=== PATIENT | female | born 1985 | race Caucasian/White ===

== ENCOUNTER 2017-12-28 10:05 | Day surgery (SDC) | payer OTHER ==
[2017-12-28 10:42] VITALS: BP 127/70; TEMP 99.2; BMI 32.3
[2017-12-28] MEDS ORDERED: Acetaminophen 500 MG TAB PO SCH (11:30)
--- NOTE | 2017-12-28 11:32 | PDOC.LDHP ---
Labor and Delivery H&P Chief complaint: other (abdominal pain) HPI: This is a 32 yo F at about 24 wks by lmp patient complaining of gradually worsening epigastric pain described as "achy" and ranked at 8/10. The pain started 2 days ago. She has been able to keep gatorade down but no solid food. She has had nausea and diarrhea. Denies blood in the stool. The pain is made worse by eating or moving, improved by excedrin. She denies any sick contacts. Denies fevers, chills, or sweats. She also complains of headache, she has a history of migraines and states she thinks one of her usual migraines is coming on. Current gestational age (weeks): 23 Dating criteria: last menstrual period Current complications: none, other (No visits as of yet, has appointment for tomorrow at care clinic) Past Medical History: migraines Current medications: pre-federica vitamins Previous surgical history: low tranverse CS (x3) Social history: tobacco use (current smoker 1-2 cigarettes a day, counseled patient on smoking cessation) - Physical Exam Vital signs reviewed and normal: yes General: NAD Heart: RRR Lungs: CTAB Abdomen: gravid (no rebound tenderness, leslie's negative) Extremeties: no edema FHT: category 1 (no accels, baseline HR 150, no decels, good variability, no contractions) - Assessment This is a 32 yo F at about 24 wks by lmp patient complaining of abdominal pain with likely viral gastroenteritis which appears to be improving. Patient is hungry and tolerating PO intake. - Plan -: Discharge home - counseled on smoking cessation - continue PO intake - offered zofran, patient refused - Use tylenol for pain relief - flu swab negative - Counseled patient on reasons to return including but not limited to ROM, contractions <5 minutes, vaginal bleeding, or fever. - f/u with care clinic tomorrow Allergies/Adverse Reactions: Allergies Allergy/AdvReac Type Severity Reaction Status Date / Time No Known Allergies Allergy Verified 12/28/17 10:42
[2017-12-28] MEDS ORDERED: Ondansetron ODT 4 MG TAB PO PRN (11:40)
== END 2017-12-28 13:45 | disposition home or self-care (01) ==
LOC: L&D/OP 10:05
PROVIDERS: ATTEND Obstetrics & Gynecology
DX: O99.89 Other specified diseases and conditions complicating pregnancy, childbirth and the puerperium (principal); R10.13 Epigastric pain; R11.2 Nausea with vomiting, unspecified; O99.332 Smoking (tobacco) complicating pregnancy, second trimester; F17.210 Nicotine dependence, cigarettes, uncomplicated; Z3A.23 23 weeks gestation of pregnancy
CPT/HCPCS: 87804; 99282

== ENCOUNTER 2018-04-04 23:12 | Day surgery (SDC) | payer OTHER ==
[2018-04-04 23:45] VITALS: BMI 34.7
[2018-04-05] MEDS ORDERED: diphenhydrAMINE 50 MG CAP PO SCH (01:15)
[2018-04-05] MEDS ORDERED: Acetaminophen 500 MG TAB PO SCH (01:15)
[2018-04-05] MEDS ORDERED: Lactated Ringer's 1,000 ML IV SCH (01:30)
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
--- NOTE | 2018-04-05 02:53 | PDOC.LDPN ---
Labor & Delivery Progress Note - Subjective Subjective: comfortable - Objective Vital signs reviewed and normal: yes General: NAD, resting Uterine fundus: non tender AYSHAE: Kranthi Dilation: 0 Effacement: 0% Station: -3 FHT: category 1 - Assessment (1) Round ligament pain Code(s): N94.9 - UNSP COND ASSOC W FEMALE GENITAL ORGANS AND MENSTRUAL CYCLE Status: Acute (2) Intrauterine Code(s): Z34.90 - ENCNTR FOR SUPRVSN OF NORMAL , UNSP, UNSP TRIMESTER Status: Acute Plan: other (DC home) -: 32 year old F at 37 wks by LMP (1) Round ligament pain - No cervical change after monitoring for two hours - occasional contractions initially, resolved after IVFs - recommended tylenol for pain - keep del f/u appt with PNC tomorrow - Discharge home (2)sIUP - Cat I strip - No concerns - see above - f/u with PNC <Billy Crisostomo - Last Filed: 04/05/18 02:51> Attending Addendum - Attending Addendum Date/Time: 04/05/18 0300 I personally evaluated the patient and discussed the management with Dr. Crisostomo I agree with the History, Examination, Assessment and Plan documented above with any addition or exceptions noted below. Unchanged exam. Doing well. Ok to d/c to home. Kell <Jeannette Palomo - Last Filed: 04/05/18 21:00>
== END 2018-04-05 06:10 | disposition home or self-care (01) ==
LOC: L&D/OP 23:12
PROVIDERS: ATTEND Student in an Organized Health Care Education/Training Program
DX: O99.89 Other specified diseases and conditions complicating pregnancy, childbirth and the puerperium (principal); O23.03 Infections of kidney in pregnancy, third trimester; O99.333 Smoking (tobacco) complicating pregnancy, third trimester; R10.2 Pelvic and perineal pain; Z3A.38 38 weeks gestation of pregnancy
CPT/HCPCS: 96360; 96361; 99284

== ENCOUNTER 2018-04-11 13:01 | Day surgery (SDC) | payer OTHER ==
[2018-04-11 13:50] VITALS: BMI 34.7
[2018-04-11 14:40] LABS: Amnisure Test No Membranes Rupture (No Rupture)
[2018-04-11 14:41] LABS: Amnisure Internal Control QC ACCEPTABLE (ACCEPTABLE)
--- NOTE | 2018-04-11 14:50 | PDOC.LDHP ---
Labor and Delivery H&P Chief complaint: contractions HPI: 32 year old at 38.2 wks by LMP/3T ultrasounds presents with contractions. She states she woke up early this morning with contractions every 5 minutes. They have since spaced out. She also had 2 episodes of NBNB emesis and several episodes of diarrhea. She has been under a lot of stress lately, and most of her symptoms started after having a conversation regarding upcoming court appointment for her son on Monday. She has not attempted to eat or drink much today. She denies LoF or vaginal bleeding. She states that she has had some vaginal discharge which appears to be clear and has consistency of mucous. She has had a headache intermittently today and has a history of migraines. She denies RUQ pain, shortness of breath, fevers, or chest pain. ROS: General: Denies fever, chills. 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 Current gestational age (weeks): 38 (38.2) Due date: 04/23/18 Dating criteria: last menstrual period, second trimester ultrasound, other (3rd trimester) Grav: 6 Para: 3 OB History Details: 1. sIUP 2. Hx of LTCS x3; possible lower uterine segment but no uterine window. Sent to [facility], has appt on 04/13 3. Anterior placenta 4. BMI 32; wt gain of 29 Ibs 5. Fam hx of ovarian cancer, breast cancer, colon cancer; approved for salpingectomy at [facility] 6. SAB x2 7. Incomplete/poor care 8. Tobacco abuse 9. Incarcerated during 10. Psoriasis 11. GBS bacteriuria s/p tx Current complications: other (Seeing [facility] for thin lower uterine segment) Past Medical History: 1. Migraine NUGENT's 2. Psoriasis on topical steroids Current medications: none Previous surgical history: low tranverse CS (x3) Social history: tobacco use (history of tobacco use) - Physical Exam Vital signs reviewed and normal: yes General: NAD Heart: RRR Lungs: CTAB Abdomen: gravid Extremeties: no edema FHT: category 1, variability present Rhine contractions every: Irregular - Vaginal Exam cm dilated: 0 Effacement: 0% Station: -3 - OB Labs Blood type: A RH: positive Antibody Screen: negative HIV: negative RPR: negative HEPSAg: negative GBS: positive Urine drug screen: negative (Prior UDS negative) Rubella: immune - Assessment 1. Labor rule out - Plan Plan: observation in L&D -: 1. Labor rule out - Amnisure negative; no rupture of membranes - Cervical check 0/0/high posterior - Contractions; none on monitor - FHT's 140's and strip reassuring - VSS - Discussed poor dating due to presenting late to care; Discussed in detail with Dr. Noe that patient not good candidate for elective c/s at this time. She has not medical necessity to schedule section with suboptimal dating. Patient does see MFM, and if they recommend patient have c/s scheduled during this , then can consider scheduling at that time. Patient has appt on 04/13/2018. There is concern for thin lower uterine segment and it has been recommended that OB surgeon scrub into delivery. - Patient was given return precautions to include LoF, frequent and regular contractions, decreased movement 2. sIUP - Checked HgA1c as patient has not had diabetes screening during this - All other labs have been normal 3. BMI 32 - 29 Ib weight gain this - Checked HgA1c 4. Family history of breast, ovarian, and colon cancer - Approved for bilateral risk reducing salpingectomy at [facility] 5. SAB x2 6. GBS bacteriuria s/p treatment <Kat Dyer - Last Filed: 04/11/18 14:43> <Sal Noe - Last Filed: 04/11/18 16:10> Allergies/Adverse Reactions: Allergies Allergy/AdvReac Type Severity Reaction Status Date / Time No Known Allergies Allergy Verified 12/28/17 10:42 Attending Addendum - Attending Addendum Date/Time: 04/11/18 1610 I personally evaluated the patient and discussed the management with Dr. Huggins. I agree with the History, Examination, Assessment and Plan. <Sal Noe - Last Filed: 04/11/18 16:10>
[2018-04-11 15:44] LABS: Hemoglobin A1c 5.3 % (4.0-6.0)
== END 2018-04-11 15:45 | disposition home or self-care (01) ==
LOC: L&D/OP 13:01
PROVIDERS: ATTEND Obstetrics & Gynecology
DX: O47.1 False labor at or after 37 completed weeks of gestation (principal); Z87.891 Personal history of nicotine dependence; Z3A.38 38 weeks gestation of pregnancy
CPT/HCPCS: 36415; 83036; 84112; 99283

== ENCOUNTER 2018-04-17 10:04 | Inpatient (IN) | payer OTHER ==
[~2018-04-17 10:04] MED LIST: Ondansetron HCl/PF 4 MG/2 ML Vial IVP PRN; Promethazine HCl 25 MG/ML VIAL IM PRN
[2018-04-17] MEDS ORDERED: Bicitra 30 ML UDCUP PO SCH (10:30)
[2018-04-17] MEDS ORDERED: CEFAZOLIN/Water 2 GM/20 ML SYRINGE SLOW IVP SCH (10:30)
[2018-04-17] MEDS: Lactated Ringer's 1,000 ML IV SCH ×2 (10:40→11:30)
[2018-04-17 11:04] VITALS: BMI 36.9
--- NOTE | 2018-04-17 11:31 | PDOC.LDHP ---
Labor and Delivery H&P Chief complaint: scheduled section HPI: 32 year old at 39.1 wks by LMP/31.0 wk ultrasound presents for scheduled repeat ceserean section. She denies LoF or vaginal bleeding or discharge. She denies, RUQ pain, shortness of breath, fevers, or chest pain. Endorses good movement. Patient endorses mild headache. She is emotional currently as no family is able to attend the of her child. ROS: General: Denies fever, chills. 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 Current gestational age (weeks): 39 (39.1 wks) Due date: 04/23/18 Dating criteria: other (31.0 wks) Grav: 6 Para: 3 OB History Details: 1. TIUP 2. Hx of LTCS x3; possible lower uterine segment but no uterine window. Sent to [facility], has appt on 04/13 3. Anterior placenta 4. BMI 32; wt gain of 29 Ibs 5. Fam hx of ovarian cancer, breast cancer, colon cancer; approved for salpingectomy at [facility] 6. SAB x2 7. Incomplete/poor care 8. Tobacco abuse 9. Incarcerated during 10. Psoriasis 11. GBS bacteriuria s/p tx Current complications: none Abnormal US findings: Yes (Thin lower uterine segment; possible uterine window) Past Medical History: 1. Migraine NUGENT's 2. Psoriasis on topical steroids Current medications: none (Not taking PNV) Previous surgical history: low tranverse CS (x3) Allergies/Adverse Reactions: Allergies Allergy/AdvReac Type Severity Reaction Status Date / Time No Known Allergies Allergy Verified 04/17/18 10:58 Social history: tobacco use - Physical Exam Vital signs reviewed and normal: yes General: NAD, resting Heart: RRR Lungs: CTAB Abdomen: NTTP Extremeties: no edema FHT: category 1, variability present - OB Labs Blood type: A RH: positive Antibody Screen: negative HIV: negative RPR: negative HEPSAg: negative GBS: positive Urine drug screen: negative (recent drug screen negative) Rubella: immune - Assessment L&D Assessment: scheduled repeat section - Plan Plan: admit to L&D -: Scheduled repeat C/S - repeat number 4 (3 prior c/s) - thin lower uterine segment - possible uterine window - was supposed to see MFM 04/13/18 - Dr. Bateman and Dr. Noe to perform c/s BMI 32 - 29 Ib weight gain this - Checked HgA1c on 04/11; 5.3% Family history of breast, ovarian, and colon cancer - Approved for bilateral risk reducing salpingectomy at [facility] SAB x2 GBS bacteriuria s/p treatment
[2018-04-17] MEDS ORDERED: Morphine PF 1 MG/ML SYR ONE (11:46)
[2018-04-17] MEDS ORDERED: Oxytocin 10 UNITS/ML VIAL ONE ×2 (11:47→13:53)
[2018-04-17] MEDS ORDERED: Bupivacaine 0.75% W/DEXTROSE 8.25% 2 ML AMP ONE (11:47)
[2018-04-17] MEDS ORDERED: Ketorolac Tromethamine 30 MG/ML VIAL ONE (11:47)
[2018-04-17] MEDS ORDERED: Ondansetron HCl/PF 4 MG/2 ML Vial IVP PRN ×2 (12:00→12:01)
[2018-04-17] MEDS ORDERED: Meperidine HCl/PF 25 MG/ML VIAL SLOW IVP PRN (12:00)
[2018-04-17] MEDS ORDERED: HYDROmorphone 2 MG/ML VIAL SLOW IVP PRN (12:00)
[2018-04-17] MEDS ORDERED: Ketorolac Tromethamine 30 MG/ML VIAL IVP SCH (12:00)
[2018-04-17] MEDS ORDERED: Naloxone HCl 0.4 mg/ml Vial IV PRN (12:01)
[2018-04-17] MEDS ORDERED: Ketorolac Tromethamine 30 MG/ML VIAL IVP PRN (12:01)
[2018-04-17] MEDS ORDERED: Promethazine HCl 25 MG/ML VIAL IM PRN (12:01)
[2018-04-17] MEDS ORDERED: Naloxone HCl 0.4 mg/ml Vial IVP PRN ×2 (12:01)
[2018-04-17] MEDS ORDERED: Eucerin (Mineral Oil/Petrolatum,White) 30 gm Jar TOP PRN (12:01)
[2018-04-17] MEDS ORDERED: Promethazine HCl 25 MG SUPP PR PRN (12:01)
[2018-04-17] MEDS ORDERED: diphenhydrAMINE 50 MG/ML VIAL IVP PRN (12:01)
[2018-04-17] MEDS ORDERED: Communication Order-Pharmacy FS SCH (12:15)
[2018-04-17 12:49] LABS: Hemoglobin 11.7 g/dL (12.0-16.0); Mean Corpuscular HGB CONC 33.6 g/dL (32.0-36.0); Mean Corpuscular Hemoglobin 29.2 pg (27.0-31.0); Mean Corpuscular Volume 86.8 fl (81.0-99.0); Mean Platelet Volume 8.1 fL (7.4-10.4); Platelet Count 204 thou/uL (130-400); RBC Distribution Width 13.3 % (11.5-14.5); White Blood Cell (WBC) Count 12.8 thou/uL (4.8-10.8)
[2018-04-17] MEDS ORDERED: Lidocaine 1% (PF) 30 ML VIAL ONE (12:56)
[2018-04-17] MEDS ORDERED: PHENYLEPHRINE-NS 100 MCG/ML 10 ML SYRINGE ONE (13:06)
[2018-04-17] MEDS ORDERED: Midazolam HCl 2 mg/2 ml Vial ONE (13:14)
[2018-04-17 13:36] LABS: Syphilis Antibody Nonreactive (Nonreactive); Syphilis Antibody Index 0.02 S/CO (<1.00 Non-Reactive)
[2018-04-17 13:38] LABS: HBSAg Index 0.16 S/CO (0-0.99); Hep B Surf Ag Non-Reactive S/CO (NonReactive)
[2018-04-17] MEDS ORDERED: diphenhydrAMINE 50 MG/ML VIAL ONE (15:32)
[2018-04-17] MEDS ORDERED: Naloxone HCl 0.4 mg/ml Vial ONE (15:32)
[2018-04-17] MEDS ORDERED: Meperidine HCl/PF 25 MG/ML VIAL ONE (15:40)
[2018-04-17] MEDS ORDERED: Docusate Calcium (SURFAK) 240 MG CAP PO PRN (16:15)
[2018-04-17] MEDS ORDERED: Lanolin Ointment 7 GM TUBE TOP PRN (16:15)
[2018-04-17] MEDS ORDERED: diphenhydrAMINE 25 MG CAP PO PRN (16:15)
[2018-04-17] MEDS ORDERED: Acetaminophen 325 MG TAB PO PRN (16:15)
[2018-04-17] MEDS ORDERED: NS / Oxytocin 40 units/1000ml 1,000 ML IV SCH (16:15)
--- NOTE | 2018-04-17 21:33 | OP ---
DATE OF SURGERY: 04/17/2018 PREOPERATIVE DIAGNOSES: 1. A 32-year-old white female, G6, P3, A2, prior section x3. 2. Desires permanent sterilization and also risk reduction salpingectomy due to familial ovarian can cer history. 3. Lorena breech presentation. POSTOPERATIVE DIAGNOSES: 1. A 32-year-old white female, G6, P3, A2, prior section x3. 2. Desires permanent sterilization and also risk reduction salpingectomy due to familial ovarian can cer history. 3. Lorena breech presentation. PROCEDURES PERFORMED: 1. Repeat low transverse section. 2. Bilateral salpingectomy. SURGEON: Ansley Schwartz M.D. HOUSEKEEPER SUPERVISOR: Jose Ramon Noe M.D. ANESTHESIA: Spinal block. ESTIMATED BLOOD LOSS: 500 mL. COMPLICATIONS: None. COUNTS: Correct x2. ANTIBIOTICS: Two grams Ancef regulatory submissions specialist to the OR. FINDINGS: 1. Vigorous female infant, lorena breech presentation, Apgars 8 and 9, weight 7 pounds, 5 ounce s. 2. Normal bilateral fallopian tubes and ovaries with some omental peritubal adhesions, status post a dhesiolysis. 3. Clear urine present in Faulkner catheter post procedure. DISPOSITION: To the recovery room stable. DESCRIPTION OF OPERATIVE PROCEDURE: The patient previously received informed consent in regards to glenn sierra. She was taken back to the operating room where she received a spinal block without complicat ions. She was then placed in supine position, prepped and draped in usual sterile fashion. PlexiPul ses and Faulkner catheter had been placed during the preparation process. At this time, a Pfannenstiel incision was made in the lower abdomen down the previous scar site. This was carried down the fascia . Fascia was then incised in midline and extended bilaterally using curved Penn scissors. Rectus fa scia was then dissected superiorly and inferiorly off the rectus muscle bellies. Rectus muscle israel es were divided in the midline. The peritoneal cavity was entered. Bladder blade was placed. A 2 c m hysterotomy incision was made in the lower uterine segment. This was extended via finger fractiona tion. The baby was then delivered in lorena breech presentation with the buttocks through the hystero tarik incision and each leg was atraumatically delivered. A corkscrewing technique was then utilized to deliver both arms atraumatically with Mauriceau maneuver per my assistant manager airside operations externally kept the head flexed with easy delivery of the head. Mouth and nares of the baby were suctioned on the abdo men. The cord was doubly clamped and cut and handed to the pediatric nurses in attendance. Usual co rd blood was obtained. Placenta was manually extracted. Uterus was externalized. Uterine cavity wa s cleared of any remaining placental fragments with dry laparotomy sponge. Hysterotomy incision was then closed in running locking fashion with #1 Monocryl suture. At this time, bilateral fallopian tu bes were identified. The right fallopian tube was grasped in the midline with a Donna. Some excis ion of the mesosalpinx on the tube allowed for mobilization of the right fallopian tube which allowed us to develop an avascular windows with clamping of the vascular pedicle beneath the tube, hemostat and Rowan clamps. These were incised. Pedicles were then hemostatic with ties of 0 chromic suture. The entire tube including the fimbria removed in this manner. This was repeated in likewise fashion on the left fallopian tube. The pelvis was then irrigated, hemostasis again with the pedicle and th e tubal sites were confirmed along with hysterotomy incision. There was some oozing in the serosa of the head to the bladder and this was made hemostatic with a [id number] suture of #1 Monocryl reis ture. Hemostasis again was confirmed. Uterus returned back into the abdomen. The pelvis again was irrigated and suctioned. Hemostasis of the muscle bellies was confirmed. The rectus fascia was then closed with 0 PDS suture in running continuous fashion securing fascial approximation. Subcutaneous tissue was then irrigated and noted to be hemostatic and was approximated with 3-0 plain gut suture. Skin was then closed with dougie. Surgery was terminated. No anesthetic or surgical complication s occurred.
[2018-04-17] MEDS: Ferrous Sulfate 325 MG TAB PO SCH (22:35)
[2018-04-18] MEDS ORDERED: HYDROcodone/Acetaminophen 5/325 mg Tablet PO PRN (00:15)
[2018-04-18] MEDS: HYDROcodone/Acetaminophen 5/325 mg Tablet PO PRN ×2 (04:42→19:04)
[2018-04-18] MEDS ORDERED: Mag-Al 1200 mg/1200 mg/30 ML UDCUP PO PRN (04:46)
[2018-04-18 04:53] LABS: Hemoglobin 9.4 g/dL (12.0-16.0); Mean Corpuscular HGB CONC 34.3 g/dL (32.0-36.0); Mean Corpuscular Volume 87.2 fl (81.0-99.0); Mean Platelet Volume 7.4 fL (7.4-10.4); Platelet Count 158 thou/uL (130-400); RBC Distribution Width 12.9 % (11.5-14.5); Red Blood Cell (RBC) Count 3.13 mill/uL (4.20-5.40)
--- NOTE | 2018-04-18 07:25 | PDOC.PP ---
Post Progress Note Post Day #: 1 Subjective: Patient doing well this AM. No significant overnight events. Pain well controlled. Tolerating PO. PO intake tolerated: yes Flatus: yes Ambulation: yes Vital Signs (12 hours) Temp Pulse Resp 04/18/18 04:00 98.2 F 88 20 04/18/18 00:00 98.2 F 88 20 04/17/18 20:00 98.2 F 88 20 Weight Weight 100.698 kg - Physical Examination General: NAD Cardiovascular: no m/r/g, RRR Respiratory: clear to auscultation bilaterally, non-labored breathing Abdominal: + bowel sounds, lochia (wnl), no distention, appropriately TTP Fundus firm & at: below umbilicus Extremities: negative homans (B) Skin: CS incision dry & intact, no rash Neurological: no gross focal deficits Psychiatric: A&Ox3 Result Diagrams: 04/18/18 04:39 Additional Labs: Post Labs Blood Type A POSITIVE 04/17/18 12:42 Hep Bs Antigen Non-Reactive S/CO (NonReactive) 04/17/18 12:42 (1) S/P repeat low transverse Code(s): Z98.891 - HISTORY OF UTERINE SCAR FROM PREVIOUS SURGERY Status: Acute - Assessment/Plan 32 year old at 39.1 wks delivered TAGA F infant via repeat LTCS at 13: 17 on on 04/17/2018. Infant was delivered in breech presentation. - Routine PP care - Incision clean, dry, intact - s/p bilateral risk reducing salpingectomy - Hx LTCS x3 prior to this delivery Family history of ovarian, breast and colon cancer - s/p risk reducing salpingectomy GBS positive - Infant delivered via c/s Incomplete care SAB x2 Dispo: Stable. Anticipate d/c home in 48 hours.
[2018-04-18] MEDS: Prenatal Vitamin 1 TAB PO SCH (07:33)
[2018-04-18] MEDS: Ibuprofen 800 MG TAB PO SCH ×3 (07:33→22:38)
[2018-04-18] MEDS: Ferrous Sulfate 325 MG TAB PO SCH ×2 (07:33→22:38)
[2018-04-18] MEDS ORDERED: Adacel (T-DAP) 0.5 ML VIAL IM ONE (09:00)
[2018-04-19] MEDS: HYDROcodone/Acetaminophen 5/325 mg Tablet PO PRN ×3 (02:38→17:52)
[2018-04-19] MEDS ORDERED: Milk Of Magnesia 30 ML UDCUP PO PRN (03:07)
[2018-04-19] MEDS: Ibuprofen 800 MG TAB PO SCH ×2 (06:35→13:14)
--- NOTE | 2018-04-19 07:13 | PDOC.PP ---
Post Progress Note Post Day #: 2 Subjective: Patient doing well this AM. No significant overnight events. Patient tolerating PO. Ambulating. Pain moderately controlled. PO intake tolerated: yes Flatus: yes Ambulation: yes Vital Signs (12 hours) Temp Pulse Resp 04/19/18 00:00 97.8 F 89 20 04/18/18 20:00 97.8 F 89 20 Weight Weight 100.698 kg - Physical Examination General: NAD Cardiovascular: no m/r/g, RRR Respiratory: clear to auscultation bilaterally Abdominal: + bowel sounds, lochia (wnl), no distention, appropriately TTP Extremities: negative homans (B) Skin: CS incision dry & intact, no rash Neurological: no gross focal deficits Psychiatric: A&Ox3 Result Diagrams: 04/18/18 04:39 Additional Labs: Post Labs Blood Type A POSITIVE 04/17/18 12:42 Hep Bs Antigen Non-Reactive S/CO (NonReactive) 04/17/18 12:42 (1) S/P repeat low transverse Code(s): Z98.891 - HISTORY OF UTERINE SCAR FROM PREVIOUS SURGERY Status: Acute - Assessment/Plan 32 year old at 39.1 wks delivered TAGA F infant via repeat LTCS at 13: 17 on on 04/17/2018. was delivered in breech presentation. - Routine PP care - Incision clean, dry, intact - s/p bilateral risk reducing salpingectomy - Hx LTCS x3 prior to this delivery Family history of ovarian, breast and colon cancer - s/p risk reducing salpingectomy GBS positive - Infant delivered via c/s Incomplete care SAB x2 Dispo: Stable. Anticipate d/c home today.
[2018-04-19] MEDS: Ferrous Sulfate 325 MG TAB PO SCH (07:45)
[2018-04-19] MEDS: Prenatal Vitamin 1 TAB PO SCH (07:46)
[2018-04-19 12:01] VITALS: BP 117/61; TEMP 98.1
== END 2018-04-19 18:25 | disposition home or self-care (01) | DRG 766 ==
LOC: L&D 10:04 → 3SW 16:16
PROVIDERS: ADMIT Obstetrics & Gynecology; ATTEND Obstetrics & Gynecology
PROC: 10D00Z1 Extraction of Products of Conception, Low, Open Approach (ICD-10-PCS; principal; 2018-04-17)
PROC: 0UT70ZZ Resection of Bilateral Fallopian Tubes, Open Approach (ICD-10-PCS; 2018-04-17)
DX: O34.211 Maternal care for low transverse scar from previous cesarean delivery (principal); O32.1XX0 Maternal care for breech presentation, not applicable or unspecified; O99.824 Streptococcus B carrier state complicating childbirth; O99.72 Diseases of the skin and subcutaneous tissue complicating childbirth; L40.9 Psoriasis, unspecified; O99.334 Smoking (tobacco) complicating childbirth; F17.200 Nicotine dependence, unspecified, uncomplicated; Z30.2 Encounter for sterilization; Z80.41 Family history of malignant neoplasm of ovary; Z80.3 Family history of malignant neoplasm of breast; Z80.0 Family history of malignant neoplasm of digestive organs; Z3A.39 39 weeks gestation of pregnancy; Z37.0 Single live birth
CPT/HCPCS: 36415; 51702; 85027; 86780; 86850; 86900; 86901; 87340; 88305; 90715; J1200; J1885; J2001; J2175; J2250; J2274; J2310; J2590; J3490

== ENCOUNTER 2018-06-15 13:11 | Emergency (ER) | payer OTHER | END 2018-06-15 17:40 | disposition left against medical advice (07) | LOC: ERS 13:11 | DX: Z53.21 Procedure and treatment not carried out due to patient leaving prior to being seen by health care provider (principal) ==

== ENCOUNTER 2018-06-22 10:52 | Emergency (ER) | payer OTHER ==
[~2018-06-22 10:52] MED LIST changes: +ISOVUE-370 76%-LOCM 1 ML ONE; -Ondansetron HCl/PF 4 MG/2 ML Vial IVP PRN; -Promethazine HCl 25 MG/ML VIAL IM PRN
[2018-06-22 11:57] LABS: #Eosinphils 0.1 thou/uL (0.0-0.7); #Lymphocytes 2.3 thou/uL (1.20-3.40); #Monocytes 0.5 thou/uL (0.11-0.59); #Neutrophils 6.3 thou/uL (1.40-6.50); %Basophils 0.5 % (0.0-1.0); %Eosinophils 1.4 % (0.0-10.0); %Lymphocytes 25.2 % (21.0-51.0); %Monocytes 5.4 % (0.0-10.0); %Neutrophils 67.5 % (42.0-75.0); Hemoglobin 12.6 g/dL (12.0-16.0); Mean Corpuscular HGB CONC 33.4 g/dL (32.0-36.0); Mean Corpuscular Hemoglobin 28.8 pg (27.0-31.0); Mean Corpuscular Volume 86.1 fL (78.0-98.0); Mean Platelet Volume 6.6 fL (7.4-10.4); Platelet Count 272 thou/uL (130-400); RBC Distribution Width 13.9 % (11.5-14.5); Red Blood Cell (RBC) Count 4.37 mill/uL (4.20-5.40); White Blood Cell (WBC) Count 9.3 thou/uL (4.8-10.8)
[2018-06-22 12:04] LABS: Bilirubin Negative (Negative); Blood, Urine Moderate (Negative); Clarity CLEAR (Clear); Glucose, Urine (Dipstick) Negative (Negative); Leukocyte Negative (Negative); Nitrite Negative (Negative); Protein, Urine (Dipstick) Negative (Neg-Trace); Specific Gravity, Urine 1.021 (1.002-1.036); Urobilinogen 0.2 mg/dL (0.2-1.0); pH, Urine 5.5 (5.0-9.0)
[2018-06-22 12:13] LABS: ALT (SGPT) 19 U/L (8-55); AST (SGOT) 12 U/L (5-34); Albumin 4.2 g/dL (3.5-5.0); Alkaline Phosphatase 92 U/L (40-150); Anion Gap 12 mmol/L (10-20); BUN (Urea Nitrogen) 16 mg/dL (7.0-18.7); Bilirubin, Total 0.3 mg/dL (0.2-1.2); Calc. Creatinine Clearance 0 mL/min (70-130); Calcium 9.5 mg/dL (7.8-10.44); Carbon Dioxide 25 mmol/L (22-29); Chloride 104 mmol/L (98-107); Estimated GFR-MDRD 87; Globulin 3.2 g/dL (2.4-3.5); Glucose 96 mg/dL (70-105); Potassium 4.4 mmol/L (3.5-5.1); Protein, Total 7.4 g/dL (6.0-8.3); Sodium 137 mmol/L (136-145)
[2018-06-22 12:13] LABS: Bacteria/HPF None Seen HPF (None Seen); Hyaline Casts/LPF 0-3 HYALINE CAST LPF (0-3 Hyaline); Pathc Cast-AUWi Flag 0.14 (0-2.49); RBC/HPF 0-3 HPF (0-3); Squamous Epithelial 0-3 HPF (0-3); WBC/HPF 0-3 HPF (0-3)
[2018-06-22 12:21] LABS: Pregnancy Test - Urine (BHCG) Negative (Negative); Pregu Control Background? CLEAR/WHITE (CLR/WHITE); Pregu Control Bar Appear? YES (CONTROL BAR); Specific Gravity 1.021 (1.002-1.036); Yeast-AUWi Flag 29.2 (0-25.0)
[2018-06-22 12:29] LABS: Yeast-All Forms None Seen HPF (None Seen)
--- NOTE | 2018-06-22 12:54 | ULT ---
ULTRASOUND PELVIC DOPPLER: HISTORY: Pain. COMPARISON: None. TECHNIQUE: Real-time, fall scale, color flow, and spectral analysis of the pelvis is performed with transabdomin al approach. FINDINGS: The endometrial thickness is 8 mm. The uterus measures 7.9 x 4 x 5.6 cm. The right ovary measures 6 x 4.1 x 2.9 cm with a complex mass which is not cystic. It is difficult to fully evaluate due to th e transabdominal-only approach. The left ovary measures 3 x 1.6 x 1.8 cm. Adequate vascular flow to both ovaries. No significant fr ee fluid. IMPRESSION: Complex mass in the right ovary measuring 3.5 x 2.9 x 2.9 cm. It is difficult to fully evaluate due to the transabdominal approach but not a transvaginal approach. Recommend a transvaginal exam to ful ly evaluate this. Correlation with patient's HCG level. No peripheral hypervascularity to suggest corpus luteum. Hemo rrhagic cyst is a possibility. POS: [facility]
--- NOTE | 2018-06-22 18:50 | CT ---
CT ABDOMEN AND PELVIS WITH IV CONTRAST: 06/22/18 HISTORY: Abdomen and pelvic pain. COMPARISON: 12/22/13. FINDINGS: The lung bases are clear. Liver, spleen, kidneys, adrenal glands, and pancreas are within normal limi ts. No enlarged lymph nodes or free fluid. The urinary bladder is decompressed. A lobular cystic mass associated with the right adnexa measures up to 4.9 x 4.6 cm diameters. Lack of oral contrast limits evaluation of the bowel. No evidence of obstruction. IMPRESSION: Large right ovarian cyst, 4.9 cm. POS: [facility]
--- NOTE | 2018-06-22 20:49 | CON ---
DATE OF CONSULTATION: 06/22/2018 EMERGENCY ROOM CONSULTATION CONSULTING PHYSICIAN: Dr. Juarez, ER physician. EVALUATING PHYSICIAN: Jose Ramon Noe M.D. CHIEF COMPLAINT: Abdominal pain. HISTORY OF PRESENT ILLNESS: Ms. Burgess Broderick is a 32-year-old white G4, P4, last normal menstru al period approximately 2 months ago who presents to the ER with complaints of progressive 1 week of abdominal pain. Her evaluation in the ER demonstrated a CT, which suggested an ovarian cyst. Transa bdominal followed by transvaginal ultrasound returns showing a uterus that is 7.9 x 4 x 5.6 cm. Ther e is a complex mass in the right ovary that on transvaginal exam measures 4.3 cm. There is flow to b oth ovaries. No significant pelvic fluid is recorded. She denies associated nausea, vomiting, fever or chills. PAST MEDICAL HISTORY: Includes anxiety. PAST SURGICAL HISTORY: x4 as well as prophylactic tubal removal with her last . CURRENT MEDICATIONS: Lexapro 10 mg daily. ALLERGIES: No known allergies. SOCIAL HISTORY: She smokes 2-3 cigarettes per day. She denies alcohol or drug use. FAMILY HISTORY: Unremarkable. REVIEW OF SYSTEMS: She denies associated nausea, vomiting, fever or chills. PHYSICAL EXAMINATION: VITAL SIGNS: In the ER today, her vital signs are stable. She is afebrile. ABDOMEN: Exam of her abdomen shows it to be slightly obese and tender to only deepest palpation on t he right side. There is no guarding or rebound. ASSESSMENT: 1. Ovarian cyst. 2. No evidence of torsion. PLAN: The patient will be allowed to go home at this time. Dr. Juarez will write her a prescriptio n for Tylenol No. 3. She was given torsion precautions and told to follow up with her regular gyneco logist, Dr. Schwartz as soon as possible.
[2018-06-24 13:02] LABS: Chlamydia by PCR Not Detected (NotDetected); GC by PCR Not Detected (NotDetected)
== END 2018-06-22 19:25 | disposition home or self-care (01) ==
LOC: ERS 10:52
DX: N83.201 Unspecified ovarian cyst, right side (principal); Z71.6 Tobacco abuse counseling; G43.909 Migraine, unspecified, not intractable, without status migrainosus; F32.9 Major depressive disorder, single episode, unspecified; F17.210 Nicotine dependence, cigarettes, uncomplicated; Z79.899 Other long term (current) drug therapy
CPT/HCPCS: 36415; 74177; 76856; 80053; 81003; 81015; 81025; 85025; 87480; 87491; 87510; 87591; 87660; 93976; 99406

== ENCOUNTER 2020-05-15 13:10 | Emergency (ER) | payer OTHER | END 2020-05-15 13:50 | disposition home or self-care (01) | LOC: ERS 13:10 | DX: R51 Headache (principal); R19.7 Diarrhea, unspecified; R11.0 Nausea; Z20.828 Contact with and (suspected) exposure to other viral communicable diseases; F32.9 Major depressive disorder, single episode, unspecified; F17.210 Nicotine dependence, cigarettes, uncomplicated; Z79.899 Other long term (current) drug therapy | CPT/HCPCS: 87635; 99284; U0003 ==